=== PATIENT | female | born 1980 | race Caucasian/White ===

== ENCOUNTER 2021-04-06 22:36 | Emergency (ER) | payer MEDICAID, OTHER ==
[~2021-04-06] VITALS: Ht 165.1 cm; Wt 74.8 kg
[2021-04-06 23:06] VITALS: BP 101/63
[2021-04-06 23:36] LABS: BILIRUBIN,URINE Negative (NEGATIVE); COLOR,URINE YELLOW (YELLOW); LEUKOCYTE ESTERASE ,URINE Trace (NEGATIVE); NITRITE, URINE Positive (NEGATIVE); PH,URINE 5.5 (5.0-8.0); PROTEIN,URINE >=300 mg/dl (NEGATIVE); UGLUCOSE Negative (NEGATIVE); UROBILINOGEN,URINE 0.2 EU/dL (0.2)
[2021-04-06 23:52] LABS: BACTERIA,URINE Few /HPF (None Seen); SQUAMOUS EPITHELIAL CELL,UR Few /HPF (None Seen)
[2021-04-06] MEDS ORDERED: DOXY100T2 PO (23:57)
== END 2021-04-07 00:03 | disposition home or self-care (01) ==
LOC: ER 22:47
DX: L03.114 Cellulitis of left upper limb (principal); N39.0 Urinary tract infection, site not specified; F19.10 Other psychoactive substance abuse, uncomplicated; F17.200 Nicotine dependence, unspecified, uncomplicated; Z98.890 Other specified postprocedural states; Z88.0 Allergy status to penicillin
CPT/HCPCS: 81001; 84703-TC; 87086-TC